=== PATIENT | female | born 1960 | race Hispanic/Latino ===

== ENCOUNTER 2016-07-30 08:30 | Inpatient (IN) | payer OTHER ==
--- NOTE | 2016-07-29 14:58 | Anesthesia Consultation ---
Anesthesia Consult and Med Hx Date of service: 07/29/16 - Airway Anesthetic Teeth Evaluation: Edentulous ROM Head & Neck: Adequate Mental/Hyoid Distance: Adequate Mallampati Class: Class II Intubation Access Assessment: Probably Good - Pre-Operative Health Status ASA Pre-Surgery Classification: ASA3 Proposed Anesthetic Plan: General - Pre-Anesthesia Comment Pre-Anesthesia Comments: Hx of Marcelle Bar virus - Pulmonary Hx Smoking: Yes (1/2 ppd x30yrs) Hx Asthma: No - Cardiovascular System Hx Hypertension: No Hx Heart Attack/AMI: No Hx Heart Murmur: Yes ("faint") - Central Nervous System CVA: Yes (in , rt hand weakness, speech problem) Hx Psychiatric Problems: Yes (depression) - Gastrointestinal Hx Gastroesophageal Reflux Disease: No - Endocrine Hx Renal Disease: No Hx Liver Disease: No Hx Non-Insulin Dependent Diabetes: No Hx Thyroid Disease: Yes (stopped taking meds due to insurance) - Hematic Hx Anemia: No - Other Systems 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
[2016-07-29 15:09] LABS: Eosinophils % (Auto) 2.5 % (0.0-4.3); Hematocrit 42.2 % (30.3-42.9); Hemoglobin 13.9 gm/dl (10.1-14.3); Mean Corpuscular HGB Conc 33 % (30-34); Mean Corpuscular Hemoglobin 28 pg (28-32); Mean Corpuscular Volume 85 fl (79-97); Platelet Count 263 K/mm3 (140-440); Red Blood Count 4.99 M/mm3 (3.65-5.03); White Blood Count 7.9 K/mm3 (4.5-11.0)
--- NOTE | 2016-08-04 09:27 | Admit Criteria Form ---
Admission Criteria Documentation: AMBULATORY SURGERY EXCEPTION CRITERIA Ambulatory Surgery Exception Criteria ( Place 'X' for any and all applicable criteria): Surgery or procedure performed on ambulatory basis may require inpatient stay for[A] ANY ONE of the following(1)(2)(3)(4)(5)(6)(7)(8)(9): [X] I. A preoperative situation, condition, or finding that warrants inpatient stay as indicated by ANY ONE of the following: [] a) Inpatient care needed because of severity of a disease or condition rather than the surgery (eg, severe cardiac or respiratory disease, severe infection) (15) (16 ) (17) (18) [] b) Emergent procedure (eg, angioplasty for acute ischemia)(19) [] c) Complex surgical approach or situation as indicated by ANY ONE of the following(3): [] i) Open approach needed instead of usual endoscopic, transcatheter, or other less invasive procedure [] ii) Difficult approach because of previous operation [] iii) Airway monitoring required after open neck procedures(20)(21) [] iv) Large mass requiring unusually extensive dissection [] v) Additional complicating feature requiring inpatient care (eg, drain management)(22(23): [X] d) Major surgery in a pt with high anesthetic risk as indicated by ANY ONE of the following (2)(3)(5)(7)(8): [X] i) ASA risk class III or higher (severe systemic disease impairing function) [D] [] ii) Advanced age (eg, older than 85 years)(14)(24) [] iii) Symptomatic heart failure(25) [] iv) Symptomatic asthma or COPD(8)(21) [] v) Morbid obesity with hemodynamic or respiratory problems(20)( 21)(26)(27) [] vi) Obstructive sleep apnea(20)(21) [] vii) Former premature infants who are younger than 60 weeks [] viii) High risk for severe postoperative abnormalities (eg, severe postoperative hypocalcemia after parathyroidectomy for severe hyperparathyroidism)(27)( 28) [] ix) Unstable angina(25) [] e) Drug-related risk requiring inpatient stay as indicated by ANY ONE of the following(5)(10)(14)(32)(33) [] i) Procedure requires discontinuing drugs or other therapy (eg , antiarrhythmic medication, antiseizure medication), which necessitates inpatient observation or treatment.(18)(31) [] ii) Major surgery and high risk drug use as indicated by ANY ONE of the following: [] 1) Active abuse of cocaine or similar drug [] 2) Monoamine oxidase inhibitor use [] 3) Other drug identified as posing risk [] f) Inadequate outpatient care situation as indicated by ANY ONE of the following(5)(10)(14)(32)(33) [] i) Patient lives remote from medical facility and procedure has urgent complication potential, and temporary nearby residence cannot be arranged [] ii) Patient will have postprocedure incapacitation and inadequate assistance at home, or alternative level of care cannot be arranged. [] iii) Patient will have long general anesthesia or procedure side effect resolution time, and competent person to stay with patient on first postoperative night at home or alternative level of care cannot be arranged. []iv) Other inadequate outpatient situation that cannot be handled by other means [] II. A perioperative event, condition, or finding that warrants inpatient stay as indicated by ANY ONE of the following (1)(2)(3): [] a) Inadequate physiologic recovery: cardiovascular, respiratory, or hemodynamic status not normal or near preoperative baseline(18) [] b) Hemodynamic instability [] c) Patient not alert with near normal or baseline mental status [] d) Temperature not normal or as expected and not appropriate for outpatient treatment of condition [] e) Ambulatory or appropriate activity level status not yet achieved post procedure [E](34)(35)(36) [] f) Operative site not appropriate (eg, unexpected or excessive drainage or bleeding) [] g) Postoperative effects not resolved or adequately managed (eg, significant pain or vomiting not appropriate for outpatient or next level of care)(10)(12) [] h) Complicating features requiring inpatient care as indicated by ANY ONE of the following(37): [] i) Severe complications of procedure (eg, bowel injury, airway compromise, vascular injury,severe hemorrhage) [] ii) Extensive (eg, dissection far beyond usual scope of procedure ) or prolonged (eg, 120 minutes beyond usual) surgery needed requiring inpatient postoperative care [] iii) Conversion to an open or complex procedure that requires inpatient care (eg, open vs laparoscopic cholecystectomy, abdominal vs vaginal hysterectomy)(38) [] iv) Comorbid condition or test result identified during or post procedure that requires inpatient care (7) [] v) Malignant hyperthermia(30) [] vi) Other complicating feature requiring inpatient care(22)(23) Inpatient stay may be needed until ALL of the following are present (1)(2)(3)(4) (5)(6)(10)(14)(33)(40): []a) Physiologic recovery: cardiovascular, respiratory, and hemodynamic status normal or near preoperative baseline []b) Hemodynamic stability []c) Patient alert, with near normal or baseline mental status []d) Temperature appropriate: patient afebrile or temperature appropriate for outpt treatment of condition []e) Activity level appropriate: ambulatory or appropriate activity level post procedure []f) Operative site appropriate as indicated by ALL of the following: []i) Site dry or with expected drainage []ii) Any blood noted is as expected for procedure. []g) Postoperative effects resolved or managed as indicated by ALL of the following: []i) Pain management appropriate for outpatient (or next level of) care(10) []ii) Minimal nausea and vomiting: if present, successfully treated with oral medication(12) []iii) Headache, dizziness, or drowsiness (if present) are mild. []h) Voiding status acceptable as indicated by ANY ONE of the following: []i) Voiding spontaneously []ii) No voiding but instructions given for follow-up in 6 to 8 hours []iii) Urinary catheter in place, and instructions given for follow-up []i) Complicating features requiring inpatient care manageable at a lower level of care(37) []j) Comorbid conditions manageable at a lower level of care(37) The original [employer] content created by [employer] has been revised. The portions of the content which have been revised are identified through the use of italic text or in bold, and [facility] has neither reviewed nor approved the modified material. All other unmodified content is copyright [employer]. Please see references footnoted in the original [employer] edition 2016 Admission Criteria Met: Yes
[2016-08-05] MEDS ORDERED: VERSED IV NR (00:01)
[2016-08-05] MEDS ORDERED: NACL 0.9% 1000 ML 0 ML ONE (06:21)
[2016-08-05] MEDS ORDERED: NACL BACTERIOSTATIC INFILTRATI ONE (06:21)
[2016-08-05] MEDS ORDERED: LACTATED RINGERS 1,000 ML ONE ×2 (06:33→09:45)
--- NOTE | 2016-08-05 06:46 | Short Stay Summary ---
<HARMEET JEAN BAPTISTE - Last Filed: 08/05/16 06:40> Short Stay Documentation Date of service: 08/05/16 Narrative H&P: C/O: Postmenopausal bleeding Cauliflower endometrial mass 56-year-old presents with above complaints and issues. She had a transvaginal ultrasound on 02/19/16 which showed a ~ 10 cm uterus with abnormal endometrial mass, cauliflower-shaped and 4 cm. She had an endometrial biopsy which was negative Gynhx: Menopausal 7-8 years Medx:s/p CVA# 2 x 18 yrs ago, Hypothy Sughx:C-S# 3, tubal ligation All:[place] A: PostMenopausal bleeding Endometrial mass P: -I discussed her ultrasound findings suspicious for cauliflower mass -Discussion of options, she chose a hysterectomy. She has had 3 prior C- sections and has a vertical abdominal scar and oral history of narrow introitus so we recommended JV -Discussed risks of surgery detail including injury to surrounding organs and structures especially ureteric injury. All her questions were answered and she has signed consent -Proceed to the OR once available - History Past Medical History: hypothyroidism, stroke Past Surgical History: (# 3) Social history: single, smoking, no alcohol abuse, no prescription drug abuse, no IV drug use - Allergies and Medications Current Medications: Allergies Sulfa (Sulfonamide Antibiotics) Allergy (Verified 07/28/16 13:47) Henoch Schonlein purpura Home Medications Medication Instructions Recorded Confirmed Last Taken Type Citalopram Hydrobromide [celeXA] 20 mg PO DAILY 07/28/16 07/28/16 Unknown History traZODone [Desyrel] 100 mg PO QHS 07/28/16 07/28/16 Unknown History Active Medications Celecoxib (Celebrex) 200 mg PO PREOP NR Stop: 08/05/16 07:01 Famotidine (Pepcid) 20 mg PO PREOP NR Stop: 08/05/16 07:01 Gabapentin (Neurontin) 600 mg PO PREOP NR Stop: 08/05/16 07:01 Lactated Ringer's (Lactated Ringers) 1,000 mls @ 100 mls/hr IV DIRECT MANNY Midazolam HCl (Versed) 2 mg IV PREOP NR Stop: 08/05/16 23:59 - Physical exam General appearance: no acute distress, well-nourished Lungs: Clear to auscultation, Normal air movement Heart: Regular rate, Normal S1, Normal S2 Gastrointestinal: normal, normoactive bowel sounds, no tenderness, no distended , no guarding Extremities: no ischemia - Disposition Condition at discharge: Good Disposition: DISCHARGED TO HOME OR SELFCARE Short Stay Discharge Plan Follow up with: PRIMARY CAREMD [Primary Care Provider] - 7 Days HARMEET JEAN BAPTISTE MD [Staff Physician] - 7 Days Prescriptions: Ibuprofen [Motrin 600 MG tab] 600 mg PO Q8H PRN #30 tablet PRN Reason: Pain Multivitamin with Iron [Multivitamins with Iron] 1 each PO DAILY #30 tablet oxyCODONE /ACETAMINOPHEN [Percocet 5/325] 1 tab PO Q6HR PRN #30 tablet PRN Reason: Pain <BROWN,KAMARI B - Last Filed: 08/07/16 13:40> Short Stay Documentation - Allergies and Medications Current Medications: Allergies Sulfa (Sulfonamide Antibiotics) Allergy (Verified 07/28/16 13:47) Henoch Schonlein purpura Home Medications Medication Instructions Recorded Confirmed Last Taken Type Citalopram Hydrobromide [celeXA] 20 mg PO DAILY 07/28/16 07/28/16 08/04/16 History traZODone [Desyrel] 100 mg PO QHS 07/28/16 07/28/16 08/04/16 History Ibuprofen [Motrin 600 MG tab] 600 mg PO Q8H PRN #30 tablet 08/05/16 Unknown Rx Multivitamin with Iron 1 each PO DAILY #30 tablet 08/05/16 Unknown Rx [Multivitamins with Iron] oxyCODONE /ACETAMINOPHEN [Percocet 1 tab PO Q6HR PRN #30 tablet 08/05/16 Unknown Rx 5/325] Active Medications Acetaminophen (Tylenol) 650 mg PO Q4H PRN PRN Reason: Pain, Mild (1-3) Last Admin: 08/06/16 22:00 Dose: 650 mg Bisacodyl (Dulcolax) 10 mg [place] QDAY PRN PRN Reason: Constip unreliev by MOM/or NPO Diphenhydramine HCl (Benadryl) 25 mg IV Q4H PRN PRN Reason: Itching Docusate Sodium (Colace) 100 mg PO BID [facility] Last Admin: 08/06/16 09:15 Dose: 100 mg Dextrose/Lactated Ringer's (D5lr) 1,000 mls @ 125 mls/hr IV DIRECT MANNY Last Admin: 08/06/16 05:46 Dose: 125 mls/hr Sodium Chloride (Nacl 0.9% 1000 Ml) 1,000 mls @ 42 mls/hr IV DIRECT MANNY Ketorolac Tromethamine (Toradol) 15 mg IV Q6H PRN PRN Reason: Pain, Mild (1-3) Stop: 08/10/16 23:18 Last Admin: 08/06/16 23:29 Dose: 15 mg Morphine Sulfate (Morphine Emissions Repair Technician 30mg/30ml) 0 mg IV DIRECT MANNY PRN Reason: Protocol Last Admin: 08/05/16 10:55 Dose: 1 cartstart Naloxone HCl (Narcan 0.4 Mg/1 Ml) 0.1 mg IV Q2MIN PRN PRN Reason: Res Rate </= 8 or 02 SAT < 92% Ondansetron HCl (Zofran) 4 mg IV Q8H PRN PRN Reason: Nausea And Vomiting Last Admin: 08/06/16 23:29 Dose: 4 mg Oxycodone/Acetaminophen (Percocet 5/325) 2 tab PO Q6H PRN PRN Reason: Pain, Moderate (4-6) Last Admin: 08/07/16 06:04 Dose: 2 tab Promethazine HCl (Phenergan) 25 mg [place] Q6H PRN PRN Reason: Nausea And Vomiting Senna/Docusate Sodium (Senokot S) 1 tab PO BID [facility] Last Admin: 08/06/16 23:30 Dose: 1 tab - Discharge Diagnoses (1) S/P JV-BSO (total abdominal hysterectomy and bilateral salpingo- oophorectomy) Status: Resolved Short Stay Discharge Plan Activity: no restrictions Diet: regular Wound: open to air, keep clean and dry
[2016-08-05] MEDS ORDERED: ANCEF/STERILE WATER 2 GM/20 ML IV NR (07:00)
[2016-08-05] MEDS ORDERED: NEURONTIN PO NR (07:00)
[2016-08-05] MEDS ORDERED: LACTATED RINGERS 1,000 ML IV SCH (07:00)
[2016-08-05] MEDS ORDERED: PEPCID PO NR (07:00)
[2016-08-05] MEDS ORDERED: DECADRON ONE (07:15)
[2016-08-05] MEDS ORDERED: ZEMURON IV ONE (07:15)
[2016-08-05] MEDS ORDERED: ZOFRAN ONE ×2 (07:15→17:43)
[2016-08-05] MEDS ORDERED: XYLOCAINE MPF 2% ONE (07:15)
[2016-08-05] MEDS ORDERED: SUBLIMAZE ONE (07:15)
[2016-08-05] MEDS ORDERED: DIPRIVAN 10 MG/ML IV ONE (07:16)
[2016-08-05] MEDS ORDERED: METHYLENE BLUE ONE (07:44)
--- NOTE | 2016-08-05 08:09 | Anesthesia Day of Surgery ---
Anesthesia Day of Surgery - Day of Surgery Patient Examined: Yes Patient H&P Reviewed: Yes Patient is NPO: Yes
[2016-08-05] MEDS ORDERED: NACL 0.9% IR ONE (08:52)
[2016-08-05] MEDS ORDERED: NEOSTIGMINE ONE (09:54)
[2016-08-05] MEDS ORDERED: ROBINUL ONE (09:54)
[2016-08-05] MEDS ORDERED: DILAUDID ONE (10:19)
[2016-08-05] MEDS ORDERED: ZOFRAN IV PRN (10:28)
[2016-08-05] MEDS ORDERED: BENADRYL IV PRN (10:28)
[2016-08-05] MEDS ORDERED: PHENERGAN PR PRN (10:28)
[2016-08-05] MEDS ORDERED: NARCAN 0.4 MG/1 ML IV PRN (10:28)
--- NOTE | 2016-08-05 10:28 | Operative Report ---
Operative Report Operative Report: DATE: 08/05/2016 PREOPERATIVE DIAGNOSIS: Postmenopausal bleeding, endometrial mass POSTOP DIAGNOSIS: Same NAME OF PROCEDURE: Total abdominal hysterectomy with bilateral salpingectomy SURGEON: HARMEET JEAN BAPTISTE MD DRIVE WORKER: PATSY SYED ANESTHESIA: Gen. EBL: 50 mL PATHOLOGY SPECIMEN: Uterus cervix and tubes URINE OUTPUT: 2 50 mL FINDINGS: Bulky and globular appearing uterus, normal ovaries bilaterally DESCRIPTION OF PROCEDURE: After informed consent, patient is patient was taken to the operating room where she was prepped and draped in a sterile fashion. Vertical incision was performed through her prior incisional scar. This was then carried down to the underlying rectus fascia which was scored in the midline. The fascial incision was extended cephalad and caudad with the use of Conn scissors, then grasped with Emily's elevated dissected sharply and bluntly off the underlying rectus. The rectus was in the midline and the peritoneal cavity was entered without difficulty. After good visualization of the bladder the peritoneal layer was extended up and down. The O'Nestor-O' Zarate retractor was placed in the patient's pelvic cavity and bowel was packed away with lap sponges. The uterus grasped with a single-tooth tenaculum and elevated. Using handheld LigaSure, the round ligament and utero-ovarian's on both sides of the uterus where serially grasped cauterized and transected. The uterine arteries on both sides were then grasped cauterized and transected. Using Bobbi scissors, the fundus of the uterus was amputated from the cervical stump and removed from the surgical field. Using straight Heaneys, the cardinal ligaments and then the uterosacrals were serially grasped transected and suture ligated. Using curved Heaneys, the vaginal cuff was grasped below the cervix and then using curved Bobbi scissors the cervix was amputated and removed from the cervix surgical field. Interrupted figure-of -eight stitches were used to close the vaginal cuff. Hemostasis was confirmed. The peritoneal edges were grasped with hemostats and Moni's; irrigation was used to clear the gutters of all clots and debris. Tisseel hemostatic agent was applied copiously over the vaginal cuff and incisions, Interceed was placed to prevent future adhesions. The peritoneal layer was closed in a running fashion with 3-0 Vicryl; the rectus was reapproximated with a single [id number] stitch. The fascia was then closed in a running fashion with 0 Vicryl from both cephalad and caudad directions; the subcutaneous layer was reapproximated with a single [id number] stitch. The skin was then closed in a subcuticular manner with 4-0 Monocryl. She tolerated the procedure well lap and instrument counts were correct 2, she did receive 2 grams of Ancef prior to the procedure. She is transferred to PACU in stable condition.
[2016-08-05] MEDS ORDERED: DULCOLAX PR PRN (11:00)
[2016-08-05] MEDS ORDERED: NACL 0.9% 1000 ML 1,000 ML IV SCH (11:00)
[2016-08-05] MEDS ORDERED: MORPHINE PCA 30MG/30ML IV SCH (11:00)
--- NOTE | 2016-08-05 11:39 | Post Anesthesia Evaluation ---
- Post Anesthesia Evaluation Patient Participated: Yes Airway Patent: Yes Stable Respiratory Function: Yes Nausea/Vomiting: No Temp > 96.8F: Yes Pain Manageable: Yes Adequeate Hydration: Yes Anesthesia Complications: No Block Receding Appropriately: Not Applicable Patient on Ventilator: No
[2016-08-05] MEDS ORDERED: D5LR 1,000 ML IV ONE (11:54)
[2016-08-05] MEDS ORDERED: DEMEROL IV PRN (12:00)
[2016-08-05] MEDS: D5LR 1,000 ML IV SCH ×2 (12:00→19:51)
[2016-08-05] MEDS: TYLENOL PO PRN (19:54)
[2016-08-05] MEDS: TORADOL IV PRN (23:43)
[2016-08-06] MEDS: COLACE PO SCH ×2 (00:05→09:15)
[2016-08-06] MEDS: SENOKOT S PO SCH ×2 (00:06→23:30)
[2016-08-06] MEDS: D5LR 1,000 ML IV SCH (05:46)
[2016-08-06 06:59] LABS: Hemoglobin 13.1 gm/dl (10.1-14.3)
[2016-08-06] MEDS: TYLENOL PO PRN ×2 (07:15→22:00)
[2016-08-06 08:26] LABS: Anion Gap 19 mmol/L; Blood Urea Nitrogen 7 mg/dL (7-17); Calcium 8.5 mg/dL (8.4-10.2); Carbon Dioxide 26 mmol/L (22-30); Chloride 102.9 mmol/L (98-107); Glucose 92 mg/dL (65-100); Sodium 144 mmol/L (137-145)
[2016-08-06] MEDS: PERCOCET 5/325 PO PRN ×2 (09:15→16:35)
--- NOTE | 2016-08-06 09:55 | Progress Note ---
Assessment and Plan - Patient Problems (1) S/P JV-BSO (total abdominal hysterectomy and bilateral salpingo- oophorectomy) Onset Date: 08/06/16 Current Visit: Yes Status: Acute Plan to address problem: A: S/P JV/BSO - POD #1 Doing well P: Continue RPOC Anticipate discharge in 24-48hrs Subjective - Subjective Date of service: 08/06/16 Principal diagnosis: s/p VJ/BSO - POD #1 Interval history: Pt is feeling well without complaints. Tolerating a liquid diet without nausea or vomiting. Patient reports: appetite normal, voiding normally, pain well controlled, ambulating normally, no flatus Objective - Vital Signs Latest vital signs: Vital Signs Temp Pulse Pulse Resp BP BP Pulse Ox 08/06/16 09:00 97 F L 66 18 115/56 08/06/16 04:20 98.6 F 56 L 20 137/73 08/06/16 00:00 98.4 F 67 20 138/68 08/05/16 20:25 99.0 F 70 20 146/75 08/05/16 16:02 98.2 F 64 18 120/76 08/05/16 11:55 97.8 F 60 60 16 148/73 148/73 95 08/05/16 11:30 97.1 F L 60 16 137/72 96 08/05/16 11:15 61 16 149/80 96 08/05/16 11:00 64 19 151/81 98 08/05/16 10:55 63 20 153/76 100 08/05/16 10:50 68 22 147/79 100 08/05/16 10:45 70 20 151/85 100 08/05/16 10:40 61 21 158/84 100 08/05/16 10:37 97.6 F 68 16 161/85 100 Intake and Output 08/05/16 08/06/16 08/06/16 22:59 06:59 14:59 Intake Total 2470 2480 240 Output Total 1500 2100 400 Balance 970 380 -160 Intake: IV 1750 2000 D5lr 1,000 ml @ 125 mls/ 1250 1000 hr IV DIRECT MANNY Rx#: [id number] D5lr 1,000 ml As IV .STK- 500 1000 MED ONE Rx#:[id number] Oral 480 240 Intake, Free Water 720 Output: Urine 1500 2100 400 Void 1500 2100 400 Other: Total, Intake Amount 240 240 Total, Output Amount 600 1400 400 Voiding Method Indwelling Catheter Toilet - Exam Cardiovascular: Present: Regular rate Lungs: Present: Clear to auscultation Abdomen: Present: normal appearance, soft Extremities: Present: normal Incision: Present: normal, dry, intact, dressed - Labs Labs: Laboratory Tests 07/29/16 08/05/16 08/06/16 14:25 06:50 06:07 WBC 7.9 RBC 4.99 Hgb 13.9 13.1 Hct 42.2 40.0 MCV 85 MCH 28 MCHC 33 RDW 15.0 Plt Count 263 Lymph % (Auto) 23.2 [place] % (Auto) 8.1 H Eos % (Auto) 2.5 Baso % (Auto) 1.0 Lymph # 1.8 [place] # 0.6 Eos # 0.2 Baso # 0.1 Seg Neutrophils % 65.2 Seg Neutrophils # 5.2 Sodium Potassium Chloride Carbon Dioxide Anion Gap BUN Creatinine Estimated GFR BUN/Creatinine Ratio Glucose Calcium Blood Type A POSITIVE Antibody Screen Negative 08/06/16 06:07 WBC RBC Hgb Hct MCV MCH MCHC RDW Plt Count Lymph % (Auto) [place] % (Auto) Eos % (Auto) Baso % (Auto) Lymph # [place] # Eos # Baso # Seg Neutrophils % Seg Neutrophils # Sodium 144 Potassium 4.0 Chloride 102.9 Carbon Dioxide 26 Anion Gap 19 BUN 7 Creatinine 0.7 Estimated GFR > 60 BUN/Creatinine Ratio 10.00 Glucose 92 Calcium 8.5 Blood Type Antibody Screen
[2016-08-06] MEDS: TORADOL IV PRN (23:29)
[2016-08-07] MEDS: PERCOCET 5/325 PO PRN ×2 (06:04→15:38)
--- NOTE | 2016-08-07 11:22 | Progress Note ---
Assessment and Plan - Patient Problems (1) S/P JV-BSO (total abdominal hysterectomy and bilateral salpingo- oophorectomy) Onset Date: 08/06/16 Current Visit: Yes Status: Acute Plan to address problem: A: S/P JV/BSO - POD #2 Doing well P: May go home today. Subjective - Subjective Date of service: 08/07/16 Principal diagnosis: s/p JV/BSO - POD #2 Interval history: Pt is feeling well without complaints. Tolerating a reg diet without nausea or vomiting. + Flatus Ambulating and voiding without difficulty. Patient reports: appetite normal, voiding normally, pain well controlled, flatus , ambulating normally Objective - Vital Signs Latest vital signs: Vital Signs Temp Pulse Resp BP 08/07/16 09:00 98.2 F 80 20 106/66 08/07/16 04:20 97.4 F L 60 20 137/64 08/07/16 00:00 98.3 F 56 L 20 138/58 08/06/16 20:15 98.6 F 63 20 132/67 08/06/16 16:00 98.4 F 58 L 20 129/61 08/06/16 12:45 98.8 F 68 18 133/66 Intake and Output 08/06/16 08/07/16 08/07/16 22:59 06:59 14:59 Intake Total 960 360 360 Output Total 1300 Balance -340 360 360 Intake: Oral 960 360 360 Output: Urine 1300 Void 1300 Other: Total, Intake Amount 240 240 360 Total, Output Amount 900 Voiding Method Toilet Toilet Toilet # Voids Void 1 1 - Exam Cardiovascular: Present: Regular rate Lungs: Present: Clear to auscultation Abdomen: Present: normal appearance, soft Extremities: Present: normal Incision: Present: normal, dry, intact, dressed
[2016-08-07] MEDS: COLACE PO SCH (14:47)
[2016-08-07 17:11] VITALS: BP 149/74
== END 2016-08-07 16:00 | disposition home or self-care (01) | DRG 743 ==
LOC: 3A 08-05 06:13 → OB 08-05 11:15
PROVIDERS: ADMIT Obstetrics & Gynecology Gynecology; ATTEND Obstetrics & Gynecology Gynecology
PROC: 0UT90ZZ Resection of Uterus, Open Approach (ICD-10-PCS; principal; 2016-08-05)
PROC: 0UTC0ZZ Resection of Cervix, Open Approach (ICD-10-PCS; 2016-08-05)
PROC: 0UT70ZZ Resection of Bilateral Fallopian Tubes, Open Approach (ICD-10-PCS; 2016-08-05)
DX: N95.0 Postmenopausal bleeding (principal); E03.9 Hypothyroidism, unspecified; F17.210 Nicotine dependence, cigarettes, uncomplicated; Z88.2 Allergy status to sulfonamides; Z86.73 Personal history of transient ischemic attack (TIA), and cerebral infarction without residual deficits; E66.9 Obesity, unspecified; Z68.34 Body mass index [BMI] 34.0-34.9, adult
CPT/HCPCS: 36415; 80048; 85014; 85018; 85025; 86850; 86900; 86901; 88305; 88307; 88341; 88342; C1765; C9250; J0690; J1100; J1170; J1885; J2175; J2250; J2270; J2405; J2704; J2710; J3010; J7030; J7120; J7121; Q9968